=== PATIENT | female | born 1980 | race Caucasian/White ===

== ENCOUNTER 2016-04-17 01:40 | Inpatient (IN) | payer OTHER ==
[2016-04-17] MEDS ORDERED: Penicillin G Potassium IV* 5,000,000 UNITS in NS 0.9% 100 ML* 100 ML IVPB ONE (05:38)
[2016-04-17] MEDS ORDERED: OBEPIDURAL* 250 ML ONE (06:22)
[2016-04-17 06:42] LABS: Hematocrit 39 % (35-47); Mean Corpuscular HGB Conc 33 g/dl (31-36); Mean Corpuscular Hemoglobin 30 pg (27-31); Mean Corpuscular Volume 91 fL (80-97); Mean Platelet Volume 8 um3 (7.4-10.4); Red Blood Count 4.32 10^6/ul (4.0-5.4); Red Cell Distribution Width 14 % (10.5-15); White Blood Count 13.4 10^3/ul (3.5-10.8)
[2016-04-17] MEDS ORDERED: Famotidine TAB* 20 MG PO PRN (07:03)
[2016-04-17] MEDS ORDERED: Sodium Citrate/Citric Acid* 15 ML UDC PO PRN (07:03)
[2016-04-17] MEDS ORDERED: Phenylephrine IV* 40 MCG/ML 10 ML SYRINGE IV PUSH PRN ×2 (07:03)
[2016-04-17] MEDS ORDERED: OBEPIDURAL* 250 ML EPIDURAL SCH (08:00)
[2016-04-17] MEDS: Penicillin G Potassium IV* 2,500,000 UNITS in NS 0.9% 100 ML* 100 ML IVPB SCH ×3 (10:02→17:59)
[2016-04-17] MEDS ORDERED: Famotidine IV * 20 MG in NS 0.9% 100 ML* 100 ML IVPB ONE (12:19)
[2016-04-17] MEDS ORDERED: Oxytocin in LR* 20 UNITS/1,000 ML BAG IVPB SCH ×2 (13:00→19:00)
[2016-04-17] MEDS ORDERED: ceFOXitin 2 GM IVPREMIX* 2 GM/50 ML BAG IVPB ONE (18:32)
[2016-04-17] MEDS ORDERED: Witch Hazel PAD* JAR TOPICAL PRN (18:33)
[2016-04-17] MEDS ORDERED: Dibucaine 1% 28.35 GM TUBE PR PRN (18:33)
[2016-04-17] MEDS ORDERED: Glycerin ADULT SUPP PR PRN (18:33)
[2016-04-17] MEDS ORDERED: fentaNYL* 50 MCG/ML 2 ML VIAL (100 MCG VIAL) ONE (18:50)
[2016-04-17] MEDS ORDERED: OXYTOCIN* 10 UNITS/ML 1 ML VIAL ONE ×2 (18:55→19:47)
[2016-04-17] MEDS ORDERED: ceFOXitin 2 GM IVPREMIX* 2 GM/50 ML BAG ONE (19:20)
[2016-04-17] MEDS ORDERED: Morphine PF AMP (0.5MG/ML)* 5 MG/10 ML AMP ONE (19:24)
[2016-04-17] MEDS ORDERED: PROCHLORPERAZINE INJ 5 MG/ML 2 ML VIAL IV PRN (19:26)
[2016-04-17] MEDS ORDERED: Ondansetron INJ* 2 MG/ML VIAL IV PRN ×2 (19:26→19:28)
[2016-04-17] MEDS ORDERED: Acetaminophen IV 1GM/100ML * 100 ML IVPB ONE (19:26)
[2016-04-17] MEDS ORDERED: Ketorolac INJ* 30 MG/ML 1 ML VIAL IV PRN (19:26)
[2016-04-17] MEDS ORDERED: fentaNYL* 50 MCG/ML 2 ML VIAL (100 MCG VIAL) IV PRN (19:26)
[2016-04-17] MEDS ORDERED: oxyCODONE TAB* 5 MG TAB PO PRN ×2 (19:26→19:28)
[2016-04-17] MEDS ORDERED: Naloxone* 0.4 MG/ML 1 ML VIAL IV PRN (19:28)
[2016-04-17] MEDS ORDERED: Nalbuphine* 20 MG/ML 1 ML VIAL IV PRN (19:28)
[2016-04-17] MEDS ORDERED: Methylergonovine INJ* 0.2 MG/ML 1ML AMP ONE ×2 (19:45→21:50)
[2016-04-17] MEDS ORDERED: Misoprostol TAB* 200 MCG ONE (19:46)
[2016-04-17] MEDS ORDERED: Ondansetron INJ* 2 MG/ML VIAL ONE (19:56)
[2016-04-17] MEDS ORDERED: Ketorolac INJ* 30 MG/ML 1 ML VIAL ONE (20:44)
[2016-04-17] MEDS ORDERED: Acetaminophen TAB* 325 MG ONE (20:44)
[2016-04-17] MEDS ORDERED: Acetaminophen IV 1GM/100ML * 100 ML ONE (20:47)
[2016-04-17] MEDS ORDERED: Misoprostol TAB* 100 MCG ONE (21:50)
[2016-04-17] MEDS: Simethicone TAB* 80 MG TAB.CHEW PO SCH (22:11)
[2016-04-17] MEDS: Docusate CAP* 100 MG PO SCH (22:11)
[2016-04-18] MEDS: Ketorolac INJ* 30 MG/ML 1 ML VIAL IV SCH ×3 (02:55→14:30)
[2016-04-18] MEDS: Acetaminophen TAB* 325 MG PO SCH ×2 (04:50→13:29)
[2016-04-18 07:05] LABS: Hematocrit 28 % (35-47); Hemoglobin 9.2 g/dl (12.0-16.0); Mean Corpuscular HGB Conc 33 g/dl (31-36); Mean Corpuscular Hemoglobin 31 pg (27-31); Mean Corpuscular Volume 92 fL (80-97); Mean Platelet Volume 8 um3 (7.4-10.4); Red Blood Count 3.01 10^6/ul (4.0-5.4); Red Cell Distribution Width 15 % (10.5-15)
[2016-04-18] MEDS: Simethicone TAB* 80 MG TAB.CHEW PO SCH ×4 (08:57→20:50)
[2016-04-18] MEDS: Prenatal Vitamin TAB PO SCH (08:57)
[2016-04-18] MEDS: Ferrous Gluconate TAB* 324 MG TAB PO SCH ×2 (08:57→20:50)
[2016-04-18] MEDS: Docusate CAP* 100 MG PO SCH ×3 (08:57→20:50)
[2016-04-18] MEDS ORDERED: oxyCODONE/Acetamin 5/325 MG* TAB PO PRN (12:18)
[2016-04-18] MEDS: oxyCODONE/Acetamin 5/325 MG* TAB PO PRN ×3 (12:19→23:04)
[2016-04-18] MEDS: Ibuprofen TAB* 600 MG PO PRN (20:56)
[2016-04-18] MEDS ORDERED: Acetaminophen TAB* 325 MG PO PRN (21:00)
[2016-04-19] MEDS: Ibuprofen TAB* 600 MG PO PRN ×3 (02:57→17:08)
[2016-04-19] MEDS: oxyCODONE/Acetamin 5/325 MG* TAB PO PRN ×3 (02:58→22:18)
--- NOTE | 2016-04-19 04:28 | OP ---
DATE OF OPERATION: 04/17/16 - ROOM #101 DATE OF : 80 SURGEON: Dolly Ni MD BENEFITS CLERK: Gracy Lopez CNM ANESTHESIOLOGIST: Dr. Mendoza. ANESTHESIA: Epidural. PRE-OP DIAGNOSIS: Arrest of dilation, 41 and 0/7th weeks' intrauterine . POST-OP DIAGNOSIS: Arrest of dilation, 41 and 0/7th weeks' intrauterine , delivered. OPERATIVE PROCEDURE: Primary low transverse section. ESTIMATED BLOOD LOSS: 700 cc. FLUIDS: 3800 cc of crystalloid. URINE OUTPUT: 200 cc of concentrated yellow urine. FINDINGS: Revealed a vertex male , Apgars 9 at one minute and 9 at five minutes. Weight was 8 pounds 10 ounces. Nuchal cord x1, meconium moderate. Normal-appearing tubes and ovaries bilaterally. Manually extracted placenta, three-vessel cord, and intact. COMPLICATIONS: None apparent. DISPOSITION: Stable to recovery room. DESCRIPTION OF PROCEDURE: The patient was placed in dorsal lithotomy position. Abdomen was prepped and draped in a sterile standard fashion. Anesthesia was tested to appropriate level. The patient was identified with universal protocol for correct position, patient, and procedure. Incision was made 2 fingerbreadths above the pubic symphysis with a scalpel. This was carried down through to the fascia. The fascia was scored in the midline, extended laterally and superiorly using curved Cerda scissors, superiorly and inferiorly with blunt and sharp dissection from the rectus muscle. The peritoneum was then entered bluntly and the peritoneal incision was extended bluntly. The bladder blade was then placed, which was used for superior exposure. The lower uterine segment was identified, grasped with Allis, tented up and incised with a scalpel. This was carried down through to the membranes. The amniotomy had already been performed; however, meconium was noted at the incision into the uterus, noted to be moderate. The incision was extended laterally and superiorly using bandage scissors. The infant was delivered. Head was delivered; however, vacuum was applied to help complete the delivery. The vacuum popped off. The rectus muscle was incised approximately 1 cm on either side to allow delivery of the baby's head. With fundal pressure, the anterior and posterior shoulder was delivered after reduction of the nuchal cord and the cord was milked. The cord was then doubly clamped and the was handed off to awaiting shook splicer, Dr. Oneill. Appropriate cord blood was then obtained. The placenta was then manually extracted, noted to be intact and has three-vessel cord. The uterus was exteriorized, cavity was wiped clean, noted to be free of any membranes or placental tissue. The uterus was noted to be very atonic. A dose of 0.25 mg of Methergine was given IM and 800 mcg of Cytotec intrarectally was then given. The uterus regained its tone. IV Pitocin was running during this time also. The uterine incision itself was then reapproximated in 2 layers, first layer running locked 0 Vicryl, second layer running imbricated 0 Vicryl. The tubes and ovaries were noted to have a normal appearance. The uterus was returned intraabdominally. Colic gutters were lavaged. Hemostasis was assured at the hysterotomy site. The peritoneum was then clamped with Shara and the peritoneum itself was then reapproximated using 3-0 Vicryl in a running fashion. Subfascial area was visualized, hemostasis was assured with Bovie coagulation. The fascial itself was then reapproximated using 0 Vicryl x2 in a running fashion. Subcu was lavaged. Hemostasis was assured with Bovie coagulation and the Camper's fascia was then reapproximated using 2-0 Vicryl in an interrupted fashion. The skin was then reapproximated using 4-0 Monocryl in a subcuticular fashion. Mastisol and Steri-Strips were applied. All sponge, instruments, and blade counts were correct throughout the case. The patient tolerated the procedure well and went to recovery room in stable condition. [id number] #: [id number] [facility] HOSPITALRaeann
[2016-04-19] MEDS: Docusate CAP* 100 MG PO SCH ×3 (09:07→21:01)
[2016-04-19] MEDS: Ferrous Gluconate TAB* 324 MG TAB PO SCH ×2 (09:09→21:01)
[2016-04-19] MEDS: Prenatal Vitamin TAB PO SCH (09:10)
[2016-04-19] MEDS: Simethicone TAB* 80 MG TAB.CHEW PO SCH ×3 (09:10→21:01)
[2016-04-20] MEDS: Ibuprofen TAB* 600 MG PO PRN ×3 (00:07→15:32)
[2016-04-20] MEDS: oxyCODONE/Acetamin 5/325 MG* TAB PO PRN ×2 (04:44→15:31)
[2016-04-20 07:44] VITALS: BP 114/63
[2016-04-20] MEDS: Simethicone TAB* 80 MG TAB.CHEW PO SCH ×3 (08:25→13:01)
[2016-04-20] MEDS: Penicillin G Potassium IV* 2,500,000 UNITS in NS 0.9% 100 ML* 100 ML IVPB SCH (08:30)
[2016-04-20] MEDS: Ferrous Gluconate TAB* 324 MG TAB PO SCH (09:06)
[2016-04-20] MEDS: Docusate CAP* 100 MG PO SCH ×2 (09:07→15:51)
[2016-04-20] MEDS: Prenatal Vitamin TAB PO SCH (09:07)
== END 2016-04-20 20:28 | disposition home or self-care (01) | DRG 540 ==
LOC: MCHOBOUT 01:40 → MCHOB 05:33
PROVIDERS: ADMIT Obstetrics & Gynecology; ATTEND Obstetrics & Gynecology
PROC: 10907ZC Drainage of Amniotic Fluid, Therapeutic from Products of Conception, Via Natural or Artificial Opening (ICD-10-PCS; 2016-04-17)
PROC: 4A1HXCZ Monitoring of Products of Conception, Cardiac Rate, External Approach (ICD-10-PCS; 2016-04-17)
PROC: 10H07YZ Insertion of Other Device into Products of Conception, Via Natural or Artificial Opening (ICD-10-PCS; 2016-04-17)
PROC: 4A1H7CZ Monitoring of Products of Conception, Cardiac Rate, Via Natural or Artificial Opening (ICD-10-PCS; 2016-04-17)
PROC: 10D00Z1 Extraction of Products of Conception, Low, Open Approach (ICD-10-PCS; principal; 2016-04-17 18:58)
DX: O69.81X0 Labor and delivery complicated by cord around neck, without compression, not applicable or unspecified (principal); O90.81 Anemia of the puerperium; O77.0 Labor and delivery complicated by meconium in amniotic fluid; Z3A.41 41 weeks gestation of pregnancy; O99.824 Streptococcus B carrier state complicating childbirth; Z37.0 Single live birth; O62.1 Secondary uterine inertia
CPT/HCPCS: 36415; 85025; 86850; 86900; 86901; A9270-GY; J0694; J1885; J2210; J2300; J2405; J2540; J2590; J3010; S0191